=== PATIENT | male | born 1965 | race Two or more races ===

== ENCOUNTER 2022-08-03 10:39 | Inpatient (IN) | payer OTHER ==
[~2022-08-03] VITALS: Ht 167.6 cm; Wt 117.9 kg
--- NOTE | 2022-08-03 11:43 | NUR ---
Thu Anh, daughter, #[phone]
--- NOTE | 2022-08-03 11:52 | NUR ---
pt went to ct returned in stable condition.
--- NOTE | 2022-08-03 11:52 | NUR ---
urine sample collected and sent to lab
--- NOTE | 2022-08-03 11:52 | NUR ---
blood collected and sent to lab
[2022-08-03 12:06] LABS: ALBUMIN 3.4 g/dL (3.4-5.0); BILIRUBIN,DIRECT 0.1 mg/dL (0.0-0.2); BILIRUBIN,TOTAL 0.4 mg/dL (0.2-1.0); CALCIUM, SERUM 8.9 mg/dL (8.5-10.1); CREATININE 1.7 mg/dL (0.6-1.3); TOTAL PROTEIN, SERUM 7.9 g/dL (6.4-8.2)
[2022-08-03 12:35] LABS: POTASSIUM 6.4 mmol/L (3.5-5.1)
[2022-08-03 12:38] LABS: BILIRUBIN,URINE NEGATIVE (NEGATIVE); COLOR,URINE YELLOW (YELLOW); LEUKOCYTE ESTERASE ,URINE NEGATIVE (NEGATIVE); NITRITE, URINE NEGATIVE (NEGATIVE); PROTEIN,URINE NEGATIVE (NEGATIVE); UGLUCOSE NEGATIVE (NEGATIVE); UROBILINOGEN,URINE 0.2 EU/dL (0.2)
--- NOTE | 2022-08-03 12:46 | NUR ---
potassium 6.4 md aware.
[2022-08-03 12:47] LABS: BASOPHILS # (AUTO) 0.1 K/uL (0.0-0.2); MONOCYTES # (AUTO) 0.4 K/uL (0.1-1.30); NEUTROPHILS # (AUTO) 3.4 K/uL (1.8-8.9)
[2022-08-03 12:58] LABS: EOSINOPHILS % (AUTO) 2.6 % (0.0-6.0); HEMATOCRIT 42 % (39-51); HEMOGLOBIN 13.1 g/dL (13.5-17.5); LYMPHOCYTES # (AUTO) 1.8 K/uL (0.8-4.8); LYMPHOCYTES % (AUTO) 31.7 % (20.0-44.0); MEAN CORPUSCULAR HGB CONC 31 g/dl (31.0-36.0); MEAN CORPUSCULAR VOLUME 85 fL (80-96); MONOCYTES % (AUTO) 6.4 % (2.0-12.0); NEUTROPHILS % (AUTO) 58.3 % (43.0-81.0); PLATELET COUNT (AUTO) 399 K/uL (150-450); RED BLOOD CELL COUNT(AUTO) 4.97 MIL/uL (4.5-6.0); WHITE BLOOD COUNT (AUTO) 5.8 K/uL (4.3-11.0)
[2022-08-03] MEDS ORDERED: Calcium Gluconate 1GM/10ML 4.65 MEQ in IV NS 0.9% 100 ML IV ONE (13:00)
[2022-08-03] MEDS ORDERED: SODIUM POLYSTYRENE SULFONATE 15 G/60 ML BOTTLE PO ONE (13:00)
[2022-08-03] MEDS ORDERED: FUROSEMIDE 40 MG/4 ML VIAL IV ONE (13:00)
[2022-08-03] MEDS ORDERED: FUROSEMIDE 40 MG/4 ML VIAL ONE (13:13)
[2022-08-03] MEDS ORDERED: INSULIN REGULAR, HUMAN 100 UNIT/ML 10 ML VIAL ONE (13:13)
[2022-08-03] MEDS ORDERED: SODIUM POLYSTYRENE SULFONATE 15 G/60 ML BOTTLE ONE (13:13)
[2022-08-03] MEDS ORDERED: DEXTROSE 50%-WATER 50 ML DISP.SYRIN ONE (13:13)
[2022-08-03] MEDS ORDERED: INSULIN REGULAR, HUMAN 100 UNIT/ML 10 ML VIAL IV ONE (13:30)
[2022-08-03] MEDS ORDERED: DEXTROSE 50%-WATER 50 ML DISP.SYRIN IV ONE (13:30)
--- NOTE | 2022-08-03 13:41 | NUR ---
[facility] [phone]
--- NOTE | 2022-08-03 13:43 | NUR ---
AUTH IS [id number] SHIVA ARELLANO
--- NOTE | 2022-08-03 14:30 | NUR ---
mateo came and took second bnp.
[2022-08-03 14:36] LABS: CALCIUM, SERUM 8.7 mg/dL (8.5-10.1); CREATININE 1.7 mg/dL (0.6-1.3); POTASSIUM 5.1 mmol/L (3.5-5.1)
[2022-08-03] MEDS ORDERED: HYDR25TA4 PO (15:01)
[2022-08-03] MEDS ORDERED: ASPI-1498 PO (15:01)
[2022-08-03] MEDS ORDERED: ALBU18HF2 IH (15:01)
[2022-08-03] MEDS ORDERED: FAMO-108 PO (15:01)
[2022-08-03] MEDS ORDERED: METF-442 PO (15:01)
[2022-08-03] MEDS ORDERED: LISI40TA13 PO (15:01)
[2022-08-03] MEDS ORDERED: GABA600T12 PO (15:01)
[2022-08-03] MEDS ORDERED: GEMF600T90 PO (15:01)
--- NOTE | 2022-08-03 15:42 | NUR ---
handoff report given to viviane cade for inpatient services.
[2022-08-03 16:15] VITALS: BP 112/72
--- NOTE | 2022-08-03 16:15 | NUR ---
ADMITTED PATIENT FROM ER. PT IS AMBULATORY WITH BPR, A/O X4, ON RA, SAT 97%, SKIN IS INTACT, IV ACCESS LEFT AC 20G, WILL CONTINUE INITIAL ASSESSMENT.
[2022-08-03] MEDS: IV NS 0.9% 1,000 ML IV PRN (16:43)
[2022-08-03] MEDS ORDERED: Z GUARD REMEDY 4 OZ OINT TP PRN (17:00)
[2022-08-03] MEDS ORDERED: INSULIN REGULAR, HUMAN 100 UNIT/ML 3 ML VIAL SQ PRN (17:00)
[2022-08-03] MEDS ORDERED: ENOXAPARIN SODIUM 40 MG/0.4 ML DISP.SYRIN SQ SCH (17:00)
[2022-08-03] MEDS ORDERED: ACETAMINOPHEN 325 MG TABLET PO PRN (17:00)
[2022-08-03] MEDS ORDERED: DEXTROSE 50%-WATER 50 ML DISP.SYRIN IV PRN (17:00)
[2022-08-03] MEDS ORDERED: ONDANSETRON HCL/PF 4 MG/2 ML VIAL IVP PRN (17:00)
[2022-08-03] MEDS: BLOOD SUGAR DIAGNOSTIC 1 EACH STRIP IN SCH ×2 (17:03→22:00)
[2022-08-03 18:11] LABS: THYROID STIMULATING HORMONE 0.673 uIU/mL (0.358-3.74)
--- NOTE | 2022-08-03 19:15 | NUR ---
RN CLOSING NOTE PATIENT IN BED, ASLEEP, CONDITION STABLE, NO C/O, ON RA, NO SOB. IV ACCESS PATENT/ INTACT, NS RUNNING AT 75ML/HR. ON EXTERNAL TELE MONITOR SR. WILL ENDORSE TO THE NEXT SHIFT FOR ILEANA.
--- NOTE | 2022-08-03 19:30 | NUR ---
RN NOTES RECEIVED REPORT FROM MORNING SHIFT. PATIENT IN BED ASLEEP. ON ROOM AIR SATING 98% NO SOB NOT ON RESPIRATORY DISTRESS. WITH IV ACCESS AT LAC # 20 RUNNING NS@ 75ML/HR. ALL SAFETY MEASURES IN PLACE. HOB ELEVATED. BED ON LOWEST POSITION AND LOCKED. WILL CLOSELY MONITOR THE PATIENT
[2022-08-03 20:00] VITALS: BP 132/72
--- NOTE | 2022-08-03 20:00 | NUR ---
RN NOTES PATIENT REFUSED TELE MONITOR AND BLOOD SUGAR CHECKED OFFERED 3X STILL REFUSED
[2022-08-04] VITALS: BP 100/72
[2022-08-04 04:00] VITALS: BP 94/62
[2022-08-04 06:22] LABS: ABG BASE EXCESS -5.1 mmol/L; ABG OXYGEN SATURATION 94.8 % (92.0-98.5); ABG PH 7.327 (7.350-7.450); ABG PO2 72.8 mmHg (75.0-100.0); COHb 1.1 % (0.5-1.5); MetHb 0.1 % (0.0-1.5); O2Hb 93.7 % (94.0-97.0); SITE, ABG Right Radial; VENT MODE, BG RA
[2022-08-04] MEDS: IV NS 0.9% 1,000 ML IV PRN (06:31)
--- NOTE | 2022-08-04 06:44 | NUR ---
RN NOTES PATIENT REMAINS STABLE NO SIGNIFICANT CHANGES. WILL ENDORSED TO MORNING SHIFT FOR ILEANA
[2022-08-04] MEDS ORDERED: PANTOPRAZOLE 40 MG TABLET.DR PO SCH (07:30)
--- NOTE | 2022-08-04 07:30 | NUR ---
FLORIST OPENING NOTES PATIENT RESTING ON BED, A/O X4. ON ROOM AIR TOLERATING WELL. NO SOB NOTED. NOT IN DISTRESS. WITH IV ACCESS ON LAC G20 WITH IVF NS AT 75ML/HR INFUSING WELL. SKIN IS INTACT. ON TELE MONITOR CURRENTLY READING SINUS RHYTHM AT 84BPM. SAFETY MEASURES IN PLACED. CALL LIGHT WITHIN REACH. BED ON LOWEST LOCKED POSITION, SIDE RAILS UP X2. WILL CONTINUE TO MONITOR.
[2022-08-04] MEDS: BLOOD SUGAR DIAGNOSTIC 1 EACH STRIP IN SCH (07:50)
[2022-08-04 08:00] VITALS: BP 122/78
[2022-08-04 09:20] LABS: BASOPHILS # (AUTO) 0.1 K/uL (0.0-0.2); BASOPHILS % (AUTO) 0.8 % (0.0-2.0); EOSINOPHILS % (AUTO) 3.3 % (0.0-6.0); HEMATOCRIT 45 % (39-51); LYMPHOCYTES # (AUTO) 1.9 K/uL (0.8-4.8); LYMPHOCYTES % (AUTO) 25.9 % (20.0-44.0); MEAN CORPUSCULAR HGB CONC 31 g/dl (31.0-36.0); MEAN CORPUSCULAR VOLUME 83 fL (80-96); MONOCYTES # (AUTO) 0.5 K/uL (0.1-1.30); MONOCYTES % (AUTO) 6.9 % (2.0-12.0); NEUTROPHILS # (AUTO) 4.5 K/uL (1.8-8.9); NEUTROPHILS % (AUTO) 63.1 % (43.0-81.0); PLATELET COUNT (AUTO) 418 K/uL (150-450); RED BLOOD CELL COUNT(AUTO) 5.38 MIL/uL (4.5-6.0); WHITE BLOOD COUNT (AUTO) 7.2 K/uL (4.3-11.0)
[2022-08-04 09:22] LABS: ALBUMIN 3.2 g/dL (3.4-5.0); BILIRUBIN,TOTAL 0.5 mg/dL (0.2-1.0); CALCIUM, SERUM 8.8 mg/dL (8.5-10.1); CREATININE 1.5 mg/dL (0.6-1.3); MAGNESIUM 1.8 mg/dL (1.8-2.4); PHOSPHORUS 2.3 mg/dL (2.5-4.9); POTASSIUM 4.9 mmol/L (3.5-5.1); TOTAL PROTEIN, SERUM 7.7 g/dL (6.4-8.2)
[2022-08-04] MEDS ORDERED: NEUTRA PHOS 1 POWD.PACKET PO ONE (12:00)
--- NOTE | 2022-08-04 12:00 | NUR ---
OIL LEASE OPERATOR NOTES PATIENT WAS SEEN BY DR. RAYA AND ORDERED FOR DISCHARGE TO HOME. DISCHARGE AND MEDICATION INSTRUCTIONS PROVIDED. PATIENT VERBALIZED UNDERSTANDING. REMOVED IV LINE AND NAME WRIST BAND. ASSISTED PATIENT VIA WHEELCHAIR TO THE LOBBY IN STABLE CONDITION AND LEFT VIA PRIVATE CAR WITH HIS BROTHER. MD AND CHARGE NURSE ARE AWARE OF THE DISCHARGE.
== END 2022-08-04 12:31 | disposition home or self-care (01) | DRG 469 ==
LOC: ER 11:09 → TELE-TD 15:37 → TELE1 16:42
PROVIDERS: ADMIT Nurse Practitioner Acute Care; ATTEND Nurse Practitioner Acute Care
DX: N17.0 Acute kidney failure with tubular necrosis (principal); G93.41 Metabolic encephalopathy; E87.5 Hyperkalemia; E11.22 Type 2 diabetes mellitus with diabetic chronic kidney disease; I12.9 Hypertensive chronic kidney disease with stage 1 through stage 4 chronic kidney disease, or unspecified chronic kidney disease; N18.9 Chronic kidney disease, unspecified; I34.0 Nonrheumatic mitral (valve) insufficiency; E66.01 Morbid (severe) obesity due to excess calories; Z68.41 Body mass index [BMI] 40.0-44.9, adult; G47.33 Obstructive sleep apnea (adult) (pediatric); J45.909 Unspecified asthma, uncomplicated; K57.30 Diverticulosis of large intestine without perforation or abscess without bleeding; R10.9 Unspecified abdominal pain; Z79.82 Long term (current) use of aspirin; Z79.84 Long term (current) use of oral hypoglycemic drugs; Z79.899 Other long term (current) drug therapy; Z59.00 Homelessness unspecified
CPT/HCPCS: 36415; 36600; 76770-TC; 80048-TC; 80053-TC; 80061-TC; 80076-TC; 82140-TC; 82962-TC; 83690-TC; 83735-TC; 84100-TC; 84443-TC; 85025-TC; 85730-TC; 87081-TC; 87086-TC; 93307-TC; A4223; C9803; G0378; J0610; J1650; J1815; J1940; J7030